=== PATIENT | female | born 1975 | race Caucasian/White ===

== ENCOUNTER 2018-05-24 15:29 | Emergency (ER) | payer MEDICAID ==
--- NOTE | 2018-05-24 17:18 | XRAY Report ---
Procedure Date: 05/24/2018 Accession Number: [id number] / [id number] Procedure: XR - Finger(s) RT CPT Code: FULL RESULT: EXAM: RIGHT FIFTH DIGIT RADIOGRAPHY EXAM DATE: 05/24/2018 04:57 PM. CLINICAL HISTORY: Injury to right little finger. COMPARISON: None. TECHNIQUE: 3 views. FINDINGS: Bones: There is fractures of the distal aspect of the fifth distal phalanx. Joints: No evidence of dislocation. Soft Tissues: No radiopaque foreign body. IMPRESSION: There is displaced fracture through the tip of the fifth distal phalanx. No evidence of dislocation or radiopaque foreign body. RADIA
[2018-05-24] MEDS ORDERED: cephALEXin 250 MG CAPSULE PO STA (17:27)
--- NOTE | 2018-05-24 17:30 | ED Physician Documentation ---
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 The sharp edge of the table cut her little finger distal to the DIP joint, and nearly amputated it. She denies any other injuries. Tetanus status is up-to-date. Review of Systems Skin: reports: Laceration (s) Musculoskeletal: reports: Extremity pain (Right little finger.) Neurologic: denies: Focal weakness, Numbness PD PAST MEDICAL HISTORY - Past Medical History Past Medical History: Yes Endocrine/Autoimmune: None Psych: Depression, Anxiety - Past Surgical History Past Surgical History: No - Present Medications Home Medications: Ambulatory Orders Medication Instructions Recorded Confirmed cephALEXin [Cephalexin] 500 mg PO TID #15 tablet 05/24/18 - Allergies Allergies/Adverse Reactions: Allergies Allergy/AdvReac Type Severity Reaction Status Date / Time nitrofurantoin AdvReac Anxiety Verified 05/24/18 15:45 [From Macrobid] Penicillins AdvReac Rash Verified 05/24/18 15:45 - Living Situation Living Situation: reports: With spouse/s.o. - Social History Does the pt smoke?: No Smoking Status: Never smoker Does the pt drink ETOH?: No Does the pt have substance abuse?: No - Immunizations Immunizations are current?: Yes PD ED PE NORMAL - Vitals Vital signs reviewed: Yes (hypertensive) - General General: Alert and oriented X 3, Well developed/nourished - HEENT HEENT: Atraumatic - Respiratory Respiratory: No respiratory distress - Derm Derm: No rash - Extremities Extremities: Other (The right middle finger has a laceration across the dorsal aspect distal to the DIP joint, through the proximal third of the fingernail. The volar pad remains intact. Thick, artificial, plastic fingernail is attached at the distal portion of the fingernail.) - Neuro Neuro: Alert and oriented X 3, No motor deficit, No sensory deficit Results - Vitals Vitals: Oxygen O2 Source Room air - Rads (name of study) Right little finger Radiology: Prelim report reviewed, EMP read contemporaneously, See rad report ( There is displaced fracture to the tip of the fifth distal phalanx. No evidence of dislocation or opaque foreign body.) Procedures - Laceration (location) right little finger Length in cm: 1 Wound type: Irregular, Other (Near avulsion of fingertip) Neurovascular status: Sensory intact, Motor intact, Vascular intact Tendon involvement: Tendon intact Anesthesia: Lidocaine 1% (digital block) Wound Preparation: Hibiclens, Irrigated copiously NS, To the base. No: FB identified Skin layer closure: Nylon, Interrupted, Size #-0 - enter number (5), Sutures - enter # (4) Other: Patient tolerated well, No complications, Neurovascular intact, Dressing applied, Tetanus UTD Complexity: Intermediate PD MEDICAL DECISION MAKING - ED course Complexity details: reviewed results, re-evaluated patient, considered differential, d/w patient, d/w family ED course: The patient's presentation is significant for an open fracture of the right distal phalanx. There is a laceration across the dorsal aspect, including proximal third of the fingernail. There is no involvement of the joint itself. Treatment in the emergency department included a digital block using 1% lidocaine. The wound was thoroughly cleaned, and was repaired with 5-0 nylon simple sutures. Cephalexin 500 mg is administered orally. A tube gauze dressing and fingertip protector were applied. I discussed with the patient and her the expected course of injury, outpatient follow-up, as well as potentially worrisome signs or symptoms that should prompt reevaluation in the emergency department. She is being discharged with a prescription for cephalexin. - Sepsis Event Vital Signs: Oxygen O2 Source Room air Departure - Departure Disposition: 01 Home, Self Care Clinical Impression: Open fracture of distal phalangeal tuft Condition: Stable Instructions: ED Laceration Amputation Finger Tip Open Tx Follow-Up: [facility] [Provider Group] [facility] [Provider Group] Prescriptions: cephALEXin [Cephalexin] 500 mg PO TID #15 tablet Comments: Keep your right hand elevated as much of the time as possible. Keep the wound clean, and apply antibiotic ointment daily. Take cephalexin 3 times daily as prescribed. You can use ibuprofen, up to 800 mg 3 times daily if needed for pain. Follow-up in orthopedic clinic within 1 week. Call to schedule appointment. Follow-up for suture removal in 12-14 days. Return to the emergency department if you develop any sign of infection, or otherwise worsening symptoms. Discharge Date/Time: 05/24/18 18:09
[2018-05-24 18:11] VITALS: BP 148/86
== END 2018-05-24 18:09 | disposition home or self-care (01) ==
LOC: ED 15:29
DX: S62.636B Displaced fracture of distal phalanx of right little finger, initial encounter for open fracture (principal); W20.8XXA Other cause of strike by thrown, projected or falling object, initial encounter; Y93.G1 Activity, food preparation and clean up; Y92.511 Restaurant or cafe as the place of occurrence of the external cause; Y99.0 Civilian activity done for income or pay
CPT/HCPCS: 12001; 73140; 99283; A9270